=== PATIENT | male | born 1940 ===

== ENCOUNTER → 2017-10-14 | Outpatient (CLI) | payer OTHER ==
[~2017-10-14] MED LIST: ATOR10 PO; LEVSOD75 PO; Naproxen250 MG PO; Norco 5-325 Ta1 EACH PO; Prilosec Otc20 MG PO
== END | disposition home or self-care (01) ==
LOC: LAB EV 11:23 → LAB SHORT 11:23
DX: L08.9 Local infection of the skin and subcutaneous tissue, unspecified (principal)
CPT/HCPCS: 87070; 87077; 87186; 87205